=== PATIENT | male | born 1975 | race Caucasian/White ===

== ENCOUNTER 2017-10-31 15:40 | Emergency (ER) | payer OTHER ==
[~2017-10-31] VITALS: Ht 172.7 cm; Wt 75.0 kg
[2017-10-31 15:44] VITALS: BP 127/60; PULSE 78; RESP 18; TEMP 98.8; O2SAT 99
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
[2017-10-31] MEDS ORDERED: DICL75TA PO (20:03)
== END 2017-10-31 20:49 | disposition home or self-care (01) ==
LOC: NEPD 15:40
DX: S80.211A Abrasion, right knee, initial encounter (principal); S93.601A Unspecified sprain of right foot, initial encounter; S83.91XA Sprain of unspecified site of right knee, initial encounter; V27.4XXA Motorcycle driver injured in collision with fixed or stationary object in traffic accident, initial encounter
CPT/HCPCS: 73564; 73630; 99283